=== PATIENT | male | born 1940 | race Caucasian/White ===

== ENCOUNTER 2018-02-05 12:53 | Inpatient (IN) | payer MEDICARE, BC ==
[~2018-02-05] VITALS: Ht 165.1 cm; Wt 72.0 kg
[~2018-02-05 12:53] MED LIST: ASPI81TA52 PO; CARV25TA2 PO; CHOL200026 PO; EMPA25TA PO; GABA-532 PO; LANTUS SUBCUT; LIRA0.6P2 SUBCUT; PRAV40TA3 PO; QUIN20TA PO
[2018-02-05] MEDS ORDERED: heparin 10,000 units/1 ML INJ IV ONE (13:05)
[2018-02-05] MEDS: heparin 25,000 UNIT/250ml bag 250 ML IV SCH ×2 (13:16→23:40)
[2018-02-05 13:40] LABS: BASOPHILS % (AUTO) 0.3 % (0-1); EOSINOPHILS # (AUTO) 0.3 X10'3 (0-0.9); HEMATOCRIT 40.4 % (42.0-52.0); HEMOGLOBIN 13.6 g/dl (14.0-17.9); LYMPHOCYTES # (AUTO) 1.8 X10'3 (1.1-4.8); MEAN CORPUSCULAR HEMOGLOBIN 30.5 PG (27.0-31.0); MEAN CORPUSCULAR HGB CONC 33.7 % (33.0-36.5); MEAN CORPUSCULAR VOLUME 90.4 FL (78-98); MEAN PLATELET VOLUME 9.4 FL (7.4-10.4); MONOCYTES # (AUTO) 0.9 X10'3 (0-0.9); MONOCYTES % (AUTO) 9.4 % (2-12); NEUTROPHILS # (AUTO) 6.4 X10'3 (1.8-7.7); NEUTROPHILS % (AUTO) 68.3 % (42-75); PLATELET COUNT 132 X10'3 (140-440); RED BLOOD COUNT 4.47 X10'6 (4.70-6.10); RED CELL DISTRIBUTION WIDTH 14.1 % (11.5-14.5); WHITE BLOOD COUNT 9.4 X10'3 (4.5-11.0)
[2018-02-05 14:05] LABS: INR 1.1 INR; PROTHROMBIN TIME 11.1 SECONDS (9.0-12.0)
[2018-02-05 14:09] LABS: PARTIAL THROMBOPLASTIN TIME 121 SECONDS (22-32)
[2018-02-05 14:29] LABS: ALANINE AMINOTRANSFERASE 54 U/L (12-78); ALBUMIN 3.4 G/DL (3.4-5.0); ALBUMIN/GLOBULIN RATIO 0.9 (1.1-1.5); ALKALINE PHOSPHATASE 127 IU/L (46-116); ANION GAP 12 (8-16); ASPARTATE AMINO TRANSFERASE 53 U/L (10-37); BILIRUBIN,TOTAL 1.4 MG/DL (0.1-1.0); BLOOD UREA NITROGEN 22 MG/DL (7-18); BUN/CREATININE RATIO 15.6 (5.4-32.0); CALCIUM 9.3 MG/DL (8.5-10.1); CHLORIDE 102 MMOL/L (99-107); CREATININE 1.41 MG/DL (0.60-1.10); GLUCOSE 201 MG/DL (70-104); POTASSIUM 4.3 MMOL/L (3.5-5.1); SODIUM 140 MMOL/L (135-145); TOTAL CARBON DIOXIDE 26.1 MMOL/L (24-32); TOTAL PROTEIN 7.2 G/DL (6.4-8.2); eGFR 49 ML/MIN
[2018-02-05] MEDS ORDERED: CARV-50 PO (15:59)
[2018-02-05] MEDS ORDERED: CYAN100097 PO (15:59)
[2018-02-05] MEDS ORDERED: QUIN20TA PO (15:59)
[2018-02-05] MEDS ORDERED: ATOR80TA PO (15:59)
[2018-02-05] MEDS ORDERED: GABA-532 PO (15:59)
[2018-02-05] MEDS ORDERED: ASPI-611 PO (15:59)
[2018-02-05] MEDS ORDERED: CHOL2000 PO (15:59)
[2018-02-05] MEDS ORDERED: INSU3INS2 SQ (15:59)
[2018-02-05] MEDS ORDERED: metoprolol tartrate 1mg/ml inj IV PRN (17:25)
[2018-02-05] MEDS ORDERED: dextrose ORAL solution 15 GM/59 ML bottle PO PRN ×2 (17:25)
[2018-02-05] MEDS ORDERED: MESSAGE TO PHARMACY PO ONE (17:25)
[2018-02-05] MEDS ORDERED: magnesium Cl slow-release 64mg tablet PO PRN (17:25)
[2018-02-05] MEDS ORDERED: morphine 2 MG/ML inj. syringe IV PRN (17:25)
[2018-02-05] MEDS ORDERED: nitroGLYCERIN 0.4mg SUBLingual tab SL PRN (17:25)
[2018-02-05] MEDS ORDERED: ondansetron/PF 4mg/2ml inj IV PRN (17:25)
[2018-02-05] MEDS ORDERED: magnesium 1gm/100ml D5W IVPB 100 ML IV PRN (17:25)
[2018-02-05] MEDS ORDERED: regadenoson 0.4mg/5ml syringe IV PRN (17:25)
[2018-02-05] MEDS ORDERED: magnesium 4gm in 100ml NS 100 ML IV PRN (17:25)
[2018-02-05] MEDS ORDERED: glucagon, human recombinant 1mg kit SUBCUT PRN (17:25)
[2018-02-05] MEDS ORDERED: potassium Cl 40MEQ/NS 500ml 500 ML IV PRN ×2 (17:25)
[2018-02-05] MEDS ORDERED: acetaminophen 325mg tablet PO PRN (17:25)
[2018-02-05] MEDS ORDERED: HYDROcodone/acetaminophen 5mg/325mg tablet PO PRN (17:25)
[2018-02-05] MEDS ORDERED: aminophylline 250mg/10ml inj. IV PRN (17:25)
[2018-02-05] MEDS ORDERED: mag hydrox/Alum hydrox/simeth 30ml oral suspension PO PRN (17:25)
[2018-02-05] MEDS ORDERED: potassium Cl 20 mEq SR tablet PO PRN ×2 (17:25)
[2018-02-05] MEDS ORDERED: dextrose 50%-water 50ml dispensing syringe IV PRN ×2 (17:25)
[2018-02-05] MEDS: normal saline 1000ml 1,000 ML IV SCH (18:10)
[2018-02-05 19:15] VITALS: BP 126/61
[2018-02-05] MEDS ORDERED: heparin, porcine 5000 units/ml vial SQ SCH (20:00)
[2018-02-05] MEDS: docusate sod 100mg capsule PO SCH (20:00)
[2018-02-05] MEDS ORDERED: atorvastatin 20mg tablet PO SCH (21:00)
[2018-02-05] MEDS ORDERED: temazepam 15mg capsule PO PRN (21:00)
[2018-02-05] MEDS ORDERED: insulin glargine (Lantus) pen - multi-dose SQ SCH (21:00)
[2018-02-05] MEDS: carVEDilol 12.5mg tablet PO SCH (21:17)
[2018-02-05] MEDS: insulin Lispro (HumaLOG) vial - multi-dose SQ SCH (21:36)
[2018-02-05 22:00] VITALS: BP 120/69
[2018-02-05] MEDS: gabapentin 300mg capsule PO SCH (23:38)
[2018-02-06] VITALS (15 sets, daily range): BP systolic 89–146; BP diastolic 39–69
[2018-02-06 02:19] LABS: BASOPHILS % (AUTO) 0.2 % (0-1); EOSINOPHILS # (AUTO) 0.2 X10'3 (0-0.9); EOSINOPHILS % (AUTO) 2.4 % (0-6); HEMATOCRIT 37.7 % (42.0-52.0); HEMOGLOBIN 12.6 g/dl (14.0-17.9); LYMPHOCYTES % (AUTO) 25.9 % (21-51); MEAN CORPUSCULAR HEMOGLOBIN 30.4 PG (27.0-31.0); MEAN CORPUSCULAR HGB CONC 33.5 % (33.0-36.5); MEAN CORPUSCULAR VOLUME 90.7 FL (78-98); MEAN PLATELET VOLUME 9.8 FL (7.4-10.4); MONOCYTES % (AUTO) 12.6 % (2-12); NEUTROPHILS # (AUTO) 4.5 X10'3 (1.8-7.7); NEUTROPHILS % (AUTO) 58.9 % (42-75); PLATELET COUNT 107 X10'3 (140-440); RED BLOOD COUNT 4.15 X10'6 (4.70-6.10); RED CELL DISTRIBUTION WIDTH 13.6 % (11.5-14.5); WHITE BLOOD COUNT 7.6 X10'3 (4.5-11.0)
[2018-02-06 02:24] LABS: ANION GAP 9 (8-16); BLOOD UREA NITROGEN 21 MG/DL (7-18); BUN/CREATININE RATIO 18.9 (5.4-32.0); CALCIUM 9.4 MG/DL (8.5-10.1); CHLORIDE 105 MMOL/L (99-107); CHOLESTEROL 128 MG/DL (0-200); CREATININE 1.11 MG/DL (0.60-1.10); GLUCOSE 163 MG/DL (70-104); HDL CHOLESTEROL 42 MG/DL (35-60); LDL CHOLESTEROL 73 MG/DL (50-100); MAGNESIUM 1.4 MG/DL (1.5-2.4); POTASSIUM 3.7 MMOL/L (3.5-5.1); SODIUM 140 MMOL/L (135-145); TOTAL CARBON DIOXIDE 25.9 MMOL/L (24-32); TRIGLYCERIDES 85 MG/DL (20-135); eGFR 64 ML/MIN
[2018-02-06] MEDS: heparin 25,000 UNIT/250ml bag 250 ML IV SCH (03:33)
[2018-02-06] MEDS: normal saline 1000ml 1,000 ML IV SCH (07:10)
[2018-02-06] MEDS ORDERED: K and/or MAG REPLACEMENT MC SCH (08:00)
[2018-02-06] MEDS: carVEDilol 12.5mg tablet PO SCH ×2 (08:00→12:34)
[2018-02-06] MEDS ORDERED: aspirin 81mg tablet.DR PO SCH (08:00)
[2018-02-06] MEDS ORDERED: lisinopril 20mg tablet PO SCH (08:00)
[2018-02-06] MEDS ORDERED: pantoprazole 40 MG vial IV SCH (08:00)
[2018-02-06] MEDS: gabapentin 300mg capsule PO SCH ×2 (08:25→15:55)
[2018-02-06] MEDS: docusate sod 100mg capsule PO SCH (08:25)
[2018-02-06] MEDS: insulin Lispro (HumaLOG) vial - multi-dose SQ SCH ×2 (08:29→13:53)
[2018-02-06] MEDS ORDERED: regadenoson 0.4mg/5ml syringe IV ONE (09:49)
[2018-02-06] MEDS ORDERED: aminophylline inj. 10 ML IV ONE (09:49)
== END 2018-02-06 17:00 | disposition home or self-care (01) | DRG 204 ==
LOC: ER 12:54 → ED HOLD 17:23 → PCU 3S 19:15
PROVIDERS: ADMIT Internal Medicine; ATTEND Family Medicine
PROC: 4A02XM4 Measurement of Cardiac Total Activity, External Approach (ICD-10-PCS; principal; 2018-02-06)
PROC: 3E033HZ Introduction of Radioactive Substance into Peripheral Vein, Percutaneous Approach (ICD-10-PCS; 2018-02-06)
DX: R07.81 Pleurodynia (principal); E78.00 Pure hypercholesterolemia, unspecified; E78.5 Hyperlipidemia, unspecified; I25.10 Atherosclerotic heart disease of native coronary artery without angina pectoris; I12.9 Hypertensive chronic kidney disease with stage 1 through stage 4 chronic kidney disease, or unspecified chronic kidney disease; J44.9 Chronic obstructive pulmonary disease, unspecified; E11.22 Type 2 diabetes mellitus with diabetic chronic kidney disease; R94.5 Abnormal results of liver function studies; T46.6X5A Adverse effect of antihyperlipidemic and antiarteriosclerotic drugs, initial encounter; N18.3 Chronic kidney disease, stage 3 (moderate); Z95.1 Presence of aortocoronary bypass graft; I25.2 Old myocardial infarction; Z95.810 Presence of automatic (implantable) cardiac defibrillator; Z98.42 Cataract extraction status, left eye; Y92.89 Other specified places as the place of occurrence of the external cause
CPT/HCPCS: 36415; 71045; 78452; 80048; 80053; 80061; 82948; 83036; 83735; 84484; 85025; 85610; 85730; 87070; 93005; 93017; 93306; 99285; A9500; C9113; G0378; J0280; J1644; J1815; J7030

== ENCOUNTER 2018-03-15 14:01 | Day surgery (SDC) | payer MEDICARE, BC ==
[2018-03-15] VITALS (10 sets, daily range): BP systolic 74–127; BP diastolic 43–65
[~2018-03-15] VITALS: Ht 165.1 cm; Wt 69.6 kg
[~2018-03-15 14:01] MED LIST changes: +ASPI-611 PO; +ATOR80TA PO; +CARV-50 PO; +CHOL2000 PO; +INSU3INS2 SQ
[2018-03-15] MEDS ORDERED: LORazepam 0.5 MG tablet PO PRN (14:20)
[2018-03-15] MEDS ORDERED: diphenhydrAMINE 25mg capsule PO PRN (14:20)
[2018-03-15] MEDS ORDERED: normal saline 1000ml 1,000 ML IV SCH ×2 (14:20→18:25)
[2018-03-15] MEDS ORDERED: INSU3INS SQ (16:04)
[2018-03-15] MEDS ORDERED: NITR0.4T SL (16:04)
[2018-03-15] MEDS ORDERED: LIDOcaine 1% (10mg/ml)w/preservative injection 20ml MDV ONE (16:44)
[2018-03-15] MEDS ORDERED: iohexol 350MG/ML 100ml bottle IV ONE ×2 (16:44→17:36)
[2018-03-15] MEDS ORDERED: midazolam 2 mg/2 ml injection ONE (17:07)
[2018-03-15] MEDS ORDERED: fentaNYL/PF 50MCG/1 ML 2ML syringe ONE (17:07)
[2018-03-15] MEDS ORDERED: heparin 1,000unit/ml 10ml vial 10 ML ONE (17:36)
[2018-03-15] MEDS ORDERED: ticagrelor 90mg tablet ONE (17:54)
[2018-03-15] MEDS ORDERED: proCHLORperazine 10 MG/2 ml inj IV PRN (18:25)
[2018-03-15] MEDS ORDERED: ondansetron/PF 4mg/2ml inj IV PRN (18:25)
[2018-03-15] MEDS ORDERED: HYDROcodone/acetaminophen 10/325mg tab PO PRN (18:25)
[2018-03-15] MEDS ORDERED: OXAZEpam 15mg capsule PO PRN (18:25)
[2018-03-15] MEDS ORDERED: HYDROcodone/acetaminophen 5mg/325mg tablet PO PRN (18:25)
== END 2018-03-15 20:55 | disposition home or self-care (01) ==
LOC: SSTAY O 14:01
PROVIDERS: ATTEND Internal Medicine Interventional Cardiology
DX: I25.700 Atherosclerosis of coronary artery bypass graft(s), unspecified, with unstable angina pectoris (principal); E11.22 Type 2 diabetes mellitus with diabetic chronic kidney disease; I13.0 Hypertensive heart and chronic kidney disease with heart failure and stage 1 through stage 4 chronic kidney disease, or unspecified chronic kidney disease; N18.9 Chronic kidney disease, unspecified; I50.9 Heart failure, unspecified; E78.5 Hyperlipidemia, unspecified; I25.2 Old myocardial infarction; E11.9 Type 2 diabetes mellitus without complications; G47.33 Obstructive sleep apnea (adult) (pediatric); I65.23 Occlusion and stenosis of bilateral carotid arteries; I25.5 Ischemic cardiomyopathy; Z95.810 Presence of automatic (implantable) cardiac defibrillator; Z95.1 Presence of aortocoronary bypass graft; Z79.4 Long term (current) use of insulin; Z86.74 Personal history of sudden cardiac arrest; Z98.42 Cataract extraction status, left eye; Z86.79 Personal history of other diseases of the circulatory system; Z79.891 Long term (current) use of opiate analgesic; Z79.82 Long term (current) use of aspirin; Z79.899 Other long term (current) drug therapy; Z88.8 Allergy status to other drugs, medicaments and biological substances; Z98.890 Other specified postprocedural states
CPT/HCPCS: 82948; 93005; 93459; 93567; 99152; 99153; A6257; C1760; C1874; C9601; C9604; J1644; J2001; J2250; J3010; J7030; Q0163; Q9967; A4620; C1725; C1769

== ENCOUNTER 2018-08-18 07:22 | Day surgery (SDC) | payer MEDICARE, BC ==
[~2018-08-18] VITALS: Ht 162.6 cm; Wt 71.7 kg
[~2018-08-18 07:22] MED LIST changes: -ASPI81TA52 PO; -CARV-50 PO; -CHOL2000 PO; -EMPA25TA PO; +INSU3INS SQ; -INSU3INS2 SQ; -LANTUS SUBCUT; +LIDOcaine 1% 30ml preserv. free vial SQ STA; -LIRA0.6P2 SUBCUT; +NITR0.4T SL; -PRAV40TA3 PO
[2018-08-18 07:50] VITALS: BP 125/69
[2018-08-18] MEDS ORDERED: normal saline 1000ml 1,000 ML IV PRN (08:05)
[2018-08-18] MEDS ORDERED: albumin 25% 100mL bottle x 1 IV PRN (08:05)
[2018-08-18] MEDS ORDERED: [UNRECOGNIZED DRUG - OTHER] (08:21)
[2018-08-18] MEDS ORDERED: TICA90TA2 PO (08:21)
[2018-08-18] MEDS ORDERED: INSU3INS2 SQ (08:21)
[2018-08-18 09:13] VITALS: BP 112/74
[2018-08-18 09:27] VITALS: BP 103/64
[2018-08-18 09:30] VITALS: BP 103/64
[2018-08-18 09:51] VITALS: BP 95/65
== END 2018-08-18 10:15 | disposition home or self-care (01) ==
LOC: SSTAY O 07:22
PROVIDERS: ATTEND Radiology Diagnostic Radiology
DX: R18.8 Other ascites (principal); I25.10 Atherosclerotic heart disease of native coronary artery without angina pectoris; I25.2 Old myocardial infarction; J44.9 Chronic obstructive pulmonary disease, unspecified; E78.5 Hyperlipidemia, unspecified; E11.9 Type 2 diabetes mellitus without complications; Z95.5 Presence of coronary angioplasty implant and graft; Z95.1 Presence of aortocoronary bypass graft; Z98.890 Other specified postprocedural states; Z79.4 Long term (current) use of insulin; Z88.8 Allergy status to other drugs, medicaments and biological substances; Z79.82 Long term (current) use of aspirin
CPT/HCPCS: 49083; C1729; J3490; J7030; 88108

== ENCOUNTER 2018-10-21 06:58 | Day surgery (SDC) | payer MEDICARE, BC ==
[~2018-10-21] VITALS: Ht 162.6 cm; Wt 64.6 kg
[~2018-10-21 06:58] MED LIST changes: -ATOR80TA PO; +INSU3INS2 SQ; -LIDOcaine 1% 30ml preserv. free vial SQ STA; +TICA90TA2 PO; +[UNRECOGNIZED DRUG - OTHER]
[2018-10-21] MEDS ORDERED: albumin 25% 100mL bottle x 1 IV PRN (07:45)
[2018-10-21] MEDS ORDERED: normal saline 1000ml 1,000 ML IV PRN (07:45)
[2018-10-21] MEDS ORDERED: CARV6.253 PO (08:16)
[2018-10-21 08:18] VITALS: BP 101/66
[2018-10-21 09:06] VITALS: BP 122/73
[2018-10-21 09:19] VITALS: BP 100/45
[2018-10-21 09:34] VITALS: BP 99/59
[2018-10-21 09:49] VITALS: BP 106/63
[2018-10-21 10:00] VITALS: BP 109/69
== END 2018-10-21 10:10 | disposition home or self-care (01) ==
LOC: SSTAY O 06:58
PROVIDERS: ATTEND Radiology Diagnostic Radiology
DX: R18.8 Other ascites (principal); I25.10 Atherosclerotic heart disease of native coronary artery without angina pectoris; I25.2 Old myocardial infarction; J44.9 Chronic obstructive pulmonary disease, unspecified; E78.5 Hyperlipidemia, unspecified; E11.9 Type 2 diabetes mellitus without complications; Z79.899 Other long term (current) drug therapy; Z79.82 Long term (current) use of aspirin; Z88.8 Allergy status to other drugs, medicaments and biological substances; Z79.4 Long term (current) use of insulin
CPT/HCPCS: 49083; C1729; J7030

== ENCOUNTER 2018-11-12 06:31 | Day surgery (SDC) | payer MEDICARE, BC ==
[~2018-11-12] VITALS: Ht 162.6 cm; Wt 69.3 kg
[2018-11-12] VITALS (8 sets, daily range): BP systolic 103–109; BP diastolic 57–69
[~2018-11-12 06:31] MED LIST changes: -CARV25TA2 PO; +CARV6.253 PO; -INSU3INS2 SQ; -NITR0.4T SL; -QUIN20TA PO; -[UNRECOGNIZED DRUG - OTHER]
[2018-11-12] MEDS ORDERED: albumin 25% 100mL bottle x 1 IV PRN (07:00)
[2018-11-12] MEDS ORDERED: normal saline 1000ml 1,000 ML IV PRN (07:00)
[2018-11-12] MEDS ORDERED: RIFA550T PO (07:47)
== END 2018-11-12 10:00 | disposition home or self-care (01) ==
LOC: SSTAY O 06:31
PROVIDERS: ATTEND Radiology Diagnostic Radiology
DX: R18.8 Other ascites (principal); I25.10 Atherosclerotic heart disease of native coronary artery without angina pectoris; I25.2 Old myocardial infarction; J44.9 Chronic obstructive pulmonary disease, unspecified; E78.5 Hyperlipidemia, unspecified; E11.9 Type 2 diabetes mellitus without complications; Z95.1 Presence of aortocoronary bypass graft; Z95.5 Presence of coronary angioplasty implant and graft; Z79.4 Long term (current) use of insulin; Z79.899 Other long term (current) drug therapy; Z79.82 Long term (current) use of aspirin; Z98.890 Other specified postprocedural states
CPT/HCPCS: 49083; C1729; J7030; P9047

== ENCOUNTER 2018-11-17 07:08 | Inpatient (IN) | payer MEDICARE, BC ==
[2018-11-16 11:11] LABS: BASOPHILS % (AUTO) 0.5 % (0-1); EOSINOPHILS # (AUTO) 0.1 X10'3 (0-0.9); EOSINOPHILS % (AUTO) 1.7 % (0-6); LYMPHOCYTES # (AUTO) 1.2 X10'3 (1.1-4.8); MEAN CORPUSCULAR HEMOGLOBIN 31.6 PG (27.0-31.0); MEAN CORPUSCULAR HGB CONC 33.7 g/dL (33.0-36.5); MEAN CORPUSCULAR VOLUME 93.9 FL (78-98); MEAN PLATELET VOLUME 8.2 FL (7.4-10.4); MONOCYTES # (AUTO) 0.7 X10'3 (0-0.9); MONOCYTES % (AUTO) 10.1 % (2-12); NEUTROPHILS # (AUTO) 4.6 X10'3 (1.8-7.7); NEUTROPHILS % (AUTO) 69.7 % (42-75); PRE OP HEMATOCRIT 40.1 % (42.0-52.0); PRE OP HEMOGLOBIN 13.5 g/dL (14.0-17.9); PRE OP PLATELET COUNT 183 X10'3 (140-440); RED BLOOD COUNT 4.27 X10'6 (4.70-6.10); RED CELL DISTRIBUTION WIDTH 16.9 % (11.5-14.5)
[2018-11-16 11:13] LABS: CLARITY,URINE CLOUDY (Clear); COLOR,URINE YELLOW (Yellow); GLUCOSE, URINE NEGATIVE (Neg); KETONES,URINE NEGATIVE (Neg); LEUKOCYTE ESTERASE ,URINE NEGATIVE (Neg); NITRITES, URINE NEGATIVE (Neg); OCCULT BLOOD,URINE NEGATIVE (Neg); PROTEIN,URINE TRACE mg/dl (Neg)
[2018-11-16 11:22] LABS: PRE OP PROTIME 10.6 SECONDS (9.0-12.0)
[2018-11-16 11:26] LABS: ALBUMIN 2.8 G/DL (3.4-5.0); ALBUMIN/GLOBULIN RATIO 0.6 (1.1-1.5); ALKALINE PHOSPHATASE 368 IU/L (46-116); BLOOD UREA NITROGEN 16 MG/DL (7-18); BUN/CREATININE RATIO 17.4 (5.4-32.0); CALCIUM 9.4 MG/DL (8.5-10.1); CHLORIDE 105 MMOL/L (99-107); CREATININE 0.92 MG/DL (0.60-1.10); PRE OP ANION GAP 7 (8-16); PRE OP BILIRUB, TOTAL 1.6 MG/DL (0.0-1.0); PRE OP GLUCOSE 69 MG/DL (70-104); PRE OP POTASSIUM 4.3 MMOL/L (3.4-5.1); PRE OP SODIUM 139 MMOL/L (135-145); TOTAL CARBON DIOXIDE 27.2 MMOL/L (24-32); TOTAL PROTEIN 7.3 G/DL (6.4-8.2); eGFR 79 ML/MIN
[2018-11-16 11:28] LABS: UA COLLECTION TYPE CLN CATCH MIDSTREAM
[2018-11-16 11:30] LABS: PRE OP AST 233 U/L (10-37)
[2018-11-16 11:31] LABS: BACTERIA,URINE NONE SEEN /HPF (Neg); MUCUS STRANDS MODERATE /LPF (Neg); RBC,URINE NONE SEEN /HPF (0-2); SQUAMOUS EPITHELIAL CELL,UR FEW /LPF (FEW); WBC,URINE 0-4 /HPF (0-4)
[2018-11-16 11:31] LABS: PRE OP ALT 112 U/L (30-65)
[2018-11-16 11:33] LABS: CAL OXALATE CRYSTALS FEW /HPF (NEGATIVE)
[~2018-11-17] VITALS: Ht 162.6 cm; Wt 65.6 kg
[2018-11-17] VITALS (28 sets, daily range): BP systolic 100–123; BP diastolic 53–77
[~2018-11-17 07:08] MED LIST changes: +RIFA550T PO
[2018-11-17] MEDS ORDERED: LIDOcaine 1% (10mg/ml) 2ml vial ONE (08:01)
[2018-11-17] MEDS: ringers solution, lacted 1,000 ML IV SCH ×2 (08:14→17:40)
[2018-11-17] MEDS ORDERED: famotidine 20mg tablet PO ONE (08:15)
[2018-11-17] MEDS ORDERED: cefazolin/dext.iso 2gm/100 ML IV ONE (08:15)
[2018-11-17] MEDS ORDERED: DOCUMENT DATE & TIME OF BETA-BLOCKER PO ONE (08:15)
[2018-11-17] MEDS ORDERED: ceFAZolin 1000mg inj ONE (09:49)
[2018-11-17] MEDS ORDERED: BUPIVAcaine/PF 2.5 mg/ml (0.25%) 30ml vial ONE (09:49)
[2018-11-17] MEDS ORDERED: bacitracin 15gm ointment TP ONE (10:52)
[2018-11-17] MEDS ORDERED: sevoflurane 250ml liquid IH ONE (11:28)
[2018-11-17] MEDS ORDERED: fentaNYL/PF 50MCG/1 ML 2ML syringe ONE (11:31)
[2018-11-17] MEDS ORDERED: propofol inj 20 ML IV ONE (11:32)
[2018-11-17] MEDS ORDERED: ePHEDrine 50MG/ML INJ. ONE (11:41)
[2018-11-17] MEDS ORDERED: morphine 4 MG/ML inj SYRINge IV PRN ×2 (12:10)
[2018-11-17] MEDS ORDERED: meperidine/PF 25mg/ml syringe IV PRN ×3 (12:10)
[2018-11-17] MEDS ORDERED: ondansetron/PF 4mg/2ml inj IV PRN ×2 (12:10→12:35)
[2018-11-17] MEDS ORDERED: ringers solution, lacted 1,000 ML IV SCH (12:10)
[2018-11-17] MEDS ORDERED: proCHLORperazine 10 MG/2 ml inj IV PRN (12:10)
--- NOTE | 2018-11-17 12:34 | NUR ---
Received from OR via [facility], accompanied by Anesthesiologist DR MILLS and report given by Anesthesiologist. PT DROWSY, NO S/S OF DISTRESS/DISCOMFORT, RIGHT LOWER ABDOMEN W/ISLAND DRSG COVERING INCISION, CDI. Addendum: 11/17/18 at 1258 by Alexsandra Michel RN Amended: Links added.
--- NOTE | 2018-11-17 15:24 | NUR ---
Report called to receiving nurse. Transferred via GURNEY, 1 BAG OF Belongings SENT W/PT TO ROOM 344B, NURSES AIDE AT BEDSIDE TO RECEIVE PT, BLL, CALL LIGHT GIVEN, SIDE RAILS UP X 2, RECEIVING RN NOTIFIED OF PTS ARRIVAL. Special Issues communicated to receiving nurse. Addendum: 11/17/18 at 1537 by Alexsandra Michel RN Amended: Links added.
--- NOTE | 2018-11-17 16:03 | NUR ---
Patient in room . I have received report from Alexsandra OROPEZA and had the opportunity to ask questions and assume patient care. patient arrived on unit in stable condition. c/o pain 11/20, medicated , will continue to monitor.
--- NOTE | 2018-11-17 18:43 | NUR ---
Problems reprioritized. Patient report given, questions answered & plan of care reviewed with Kristy Holloway RN.
--- NOTE | 2018-11-17 18:49 | NUR ---
Patient in room [facility]. I have received report from JOHNNA RALPH and had the opportunity to ask questions and assume patient care. Addendum: 11/17/18 at 1850 by Francesca Nathan RN Amended: Links added.
[2018-11-17] MEDS: HYDROcodone/acetaminophen 5mg/325mg tablet PO PRN (21:51)
[2018-11-17] MEDS ORDERED: glucagon, human recombinant 1mg kit SUBCUT PRN (22:10)
[2018-11-17] MEDS ORDERED: dextrose ORAL solution 15 GM/59 ML bottle PO PRN ×2 (22:10)
[2018-11-17] MEDS ORDERED: dextrose 50%-water 50ml dispensing syringe IV PRN ×2 (22:10)
[2018-11-18] VITALS: BP 98/62
[2018-11-18 04:00] VITALS: BP 116/74
[2018-11-18 05:26] LABS: BASOPHILS % (AUTO) 0.3 % (0-1); EOSINOPHILS # (AUTO) 0.2 X10'3 (0-0.9); EOSINOPHILS % (AUTO) 2.3 % (0-6); HEMATOCRIT 36.2 % (42.0-52.0); HEMOGLOBIN 12.3 g/dl (14.0-17.9); LYMPHOCYTES # (AUTO) 1.4 X10'3 (1.1-4.8); LYMPHOCYTES % (AUTO) 18.5 % (21-51); MEAN CORPUSCULAR HEMOGLOBIN 31.5 PG (27.0-31.0); MEAN CORPUSCULAR HGB CONC 33.9 g/dL (33.0-36.5); MEAN CORPUSCULAR VOLUME 92.9 FL (78-98); MEAN PLATELET VOLUME 8.2 FL (7.4-10.4); MONOCYTES # (AUTO) 0.8 X10'3 (0-0.9); MONOCYTES % (AUTO) 10.8 % (2-12); NEUTROPHILS % (AUTO) 68.1 % (42-75); PLATELET COUNT 147 X10'3 (140-440); RED CELL DISTRIBUTION WIDTH 15.9 % (11.5-14.5); WHITE BLOOD COUNT 7.4 X10'3 (4.5-11.0)
--- NOTE | 2018-11-18 06:18 | NUR ---
Problems reprioritized. Patient report given, questions answered & plan of care reviewed with JOHNNA Payton. Addendum: 11/18/18 at 0619 by Francesca Nathan RN Amended: Links added.
--- NOTE | 2018-11-18 06:19 | NUR ---
Patient in room [facility]. I have received report from Kristy OROPEZA and had the opportunity to ask questions and assume patient care.
[2018-11-18 07:00] VITALS: BP 110/60
[2018-11-18 11:00] VITALS: BP 119/73
[2018-11-18] MEDS: HYDROcodone/acetaminophen 5mg/325mg tablet PO PRN (14:27)
--- NOTE | 2018-11-18 14:40 | NUR ---
Discharged patient home, discharge instructions given to patient and family at bedside. Patient and family verbalized understanding of all instructions made. Peripheral IV catheter removed,tip intact.Right groin dressing changed, wound looks good, bayron intact. Applied new island dressing on the wound. Per patient family, they already received the written prescription for [place] at Dr. Mcmullen office.Instructed patient to ensure they have all their belongings before leaving.
== END 2018-11-18 14:40 | disposition home or self-care (01) | DRG 351 ==
LOC: PAS 07:08 → SUR 3N 07:09
PROVIDERS: ADMIT Surgery; ATTEND Surgery
PROC: 0YQ50ZZ Repair Right Inguinal Region, Open Approach (ICD-10-PCS; principal; 2018-11-17 11:28)
DX: K40.90 Unilateral inguinal hernia, without obstruction or gangrene, not specified as recurrent (principal); R18.8 Other ascites; C22.0 Liver cell carcinoma; E11.40 Type 2 diabetes mellitus with diabetic neuropathy, unspecified; I10 Essential (primary) hypertension; I25.10 Atherosclerotic heart disease of native coronary artery without angina pectoris; K72.90 Hepatic failure, unspecified without coma; K74.5 Biliary cirrhosis, unspecified; K74.60 Unspecified cirrhosis of liver; Z77.090 Contact with and (suspected) exposure to asbestos; Z95.5 Presence of coronary angioplasty implant and graft; Z88.8 Allergy status to other drugs, medicaments and biological substances
CPT/HCPCS: 36415; 80053; 81001; 82948; 83036; 85025; 85610; 85730; A4215; A4618; A7000; G0378; J0690; J2001; J2175; J2270; J2704; J3010; J3490; J7120

== ENCOUNTER 2018-12-03 07:47 | Day surgery (SDC) | payer MEDICARE, BC ==
[~2018-12-03] VITALS: Ht 165.1 cm; Wt 70.1 kg
[2018-12-03 08:40] VITALS: BP 111/72
[2018-12-03 08:45] VITALS: BP 109/71
[2018-12-03] MEDS ORDERED: LIRA0.6P SQ (08:45)
[2018-12-03 08:50] VITALS: BP 109/71
[2018-12-03] MEDS ORDERED: albumin 25% 100mL bottle x 1 IV PRN (09:30)
[2018-12-03] MEDS ORDERED: normal saline 1000ml 1,000 ML IV PRN (09:30)
[2018-12-03 10:15] VITALS: BP 115/64
[2018-12-03 10:30] VITALS: BP 107/68
[2018-12-03 11:00] VITALS: BP 101/57
== END 2018-12-03 11:12 | disposition home or self-care (01) ==
LOC: SSTAY O 07:47
PROVIDERS: ATTEND Radiology Vascular & Interventional Radiology
DX: R18.8 Other ascites (principal); I25.10 Atherosclerotic heart disease of native coronary artery without angina pectoris; I25.2 Old myocardial infarction; J44.9 Chronic obstructive pulmonary disease, unspecified; E78.5 Hyperlipidemia, unspecified; E11.9 Type 2 diabetes mellitus without complications; Z95.5 Presence of coronary angioplasty implant and graft; Z98.890 Other specified postprocedural states; Z88.8 Allergy status to other drugs, medicaments and biological substances; Z79.82 Long term (current) use of aspirin; Z79.899 Other long term (current) drug therapy
CPT/HCPCS: 49083; 87070; C1729; J7030; 88108; 88305; 88313; 88342; P9047

== ENCOUNTER 2018-12-22 07:15 | Day surgery (SDC) | payer MEDICARE, BC ==
[~2018-12-22] VITALS: Ht 165.1 cm; Wt 70.6 kg
[2018-12-22] VITALS (14 sets, daily range): BP systolic 98–119; BP diastolic 41–72
[~2018-12-22 07:15] MED LIST changes: -INSU3INS SQ; +LIRA0.6P SQ
[2018-12-22] MEDS ORDERED: normal saline 1000ml 1,000 ML IV PRN (07:35)
[2018-12-22] MEDS ORDERED: SORA200T2 PO (07:38)
[2018-12-22] MEDS: albumin 25% 100mL bottle x 1 IV PRN ×2 (10:01→10:35)
== END 2018-12-22 11:15 | disposition home or self-care (01) ==
LOC: SSTAY O 07:15
PROVIDERS: ATTEND Radiology Vascular & Interventional Radiology
DX: R18.8 Other ascites (principal); I25.10 Atherosclerotic heart disease of native coronary artery without angina pectoris; I25.2 Old myocardial infarction; E78.5 Hyperlipidemia, unspecified; J44.9 Chronic obstructive pulmonary disease, unspecified; E11.9 Type 2 diabetes mellitus without complications; Z79.4 Long term (current) use of insulin; Z79.899 Other long term (current) drug therapy; Z88.8 Allergy status to other drugs, medicaments and biological substances; Z95.5 Presence of coronary angioplasty implant and graft; Z98.890 Other specified postprocedural states
CPT/HCPCS: 49083; C1729; J7030; P9047

== ENCOUNTER 2019-01-17 07:16 | Day surgery (SDC) | payer MEDICARE, BC ==
[~2019-01-17] VITALS: Ht 165.1 cm; Wt 68.3 kg
[2019-01-17] VITALS (8 sets, daily range): BP systolic 88–108; BP diastolic 51–66
[~2019-01-17 07:16] MED LIST changes: +SORA200T2 PO
[2019-01-17] MEDS ORDERED: normal saline 1000ml 1,000 ML IV PRN (07:45)
[2019-01-17] MEDS: albumin 25% 100mL bottle x 1 IV PRN ×2 (09:28→10:00)
== END 2019-01-17 10:40 | disposition home or self-care (01) ==
LOC: SSTAY O 07:16
PROVIDERS: ATTEND Radiology Diagnostic Radiology
DX: R18.8 Other ascites (principal)
CPT/HCPCS: 49083; J7030; P9047; 88108; 88305

== ENCOUNTER 2019-02-11 07:43 | Day surgery (SDC) | payer MEDICARE, BC ==
[2019-02-11] VITALS (9 sets, daily range): BP systolic 71–89; BP diastolic 39–55
[~2019-02-11] VITALS: Ht 165.1 cm; Wt 64.0 kg
[2019-02-11] MEDS ORDERED: albumin 25% 100mL bottle x 1 IV PRN (08:35)
[2019-02-11] MEDS ORDERED: normal saline 1000ml 1,000 ML IV PRN (08:35)
[2019-02-11] MEDS ORDERED: [UNRECOGNIZED DRUG - OTHER] (12:45)
[2019-02-11] MEDS ORDERED: SPIR25TA5 PO (12:46)
== END 2019-02-11 10:45 | disposition short-term general hospital (02) ==
LOC: SSTAY O 07:43
PROVIDERS: ATTEND Radiology Vascular & Interventional Radiology
DX: R18.8 Other ascites (principal); Z79.899 Other long term (current) drug therapy
CPT/HCPCS: 49083; 82948; C1729; J7030; P9047